=== PATIENT | male | born 1985 | race Caucasian/White ===

== ENCOUNTER 2017-02-09 22:17 | Emergency (ER) | payer SELFPAY ==
[2017-02-10 01:37] VITALS: BP 131/85
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
== END 2017-02-10 05:00 | disposition home or self-care (01) ==
LOC: ED 22:17
DX: S09.90XA Unspecified injury of head, initial encounter (principal); S01.511A Laceration without foreign body of lip, initial encounter; S01.01XA Laceration without foreign body of scalp, initial encounter; R42 Dizziness and giddiness; Y04.2XXA Assault by strike against or bumped into by another person, initial encounter; Y93.9 Activity, unspecified; Y92.159 Unspecified place in reform school as the place of occurrence of the external cause; Y99.0 Civilian activity done for income or pay; I10 Essential (primary) hypertension; Z87.891 Personal history of nicotine dependence
CPT/HCPCS: 12002; 70486; 99282